=== PATIENT | female | born 1945 | race Caucasian/White ===

== ENCOUNTER → 2017-03-05 | Outpatient (CLI) | payer OTHER ==
[~2017-03-05] MED LIST: ACETAMINOPHEN-1 EAC1; ASPIRIN EC81 M1 PO; CALCIUM OYSTER500 MG PO; EVISTA; FLEXERIL PO; LEXAPRO 10 MG T10 MG PO; MAXALT MLT ODT10 M1 PO; MOBIC7.5 MG PO; TOPIRAGEN50 MG PO; TRAMADOL 50 MG50 MG PO; VITAMIN D31000 UNI2 PO
== END ==
LOC: RAD 01:23
DX: Z12.31 Encounter for screening mammogram for malignant neoplasm of breast (principal)

== ENCOUNTER → 2018-03-11 | Outpatient (CLI) | payer OTHER | LOC: RAD 01:20 | DX: Z12.31 Encounter for screening mammogram for malignant neoplasm of breast (principal) ==

== ENCOUNTER → 2019-03-24 | Outpatient (CLI) | payer OTHER | LOC: RAD 11:02 | DX: Z12.31 Encounter for screening mammogram for malignant neoplasm of breast (principal) ==

== ENCOUNTER → 2020-03-29 | Outpatient (CLI) | payer OTHER | LOC: BC 10:42 | DX: Z12.31 Encounter for screening mammogram for malignant neoplasm of breast (principal) ==

== ENCOUNTER → 2021-03-30 | Outpatient (CLI) | payer OTHER | LOC: BC 10:38 | DX: Z12.31 Encounter for screening mammogram for malignant neoplasm of breast (principal); N64.89 Other specified disorders of breast ==